=== PATIENT | female | born 1950 | race Caucasian/White ===

== ENCOUNTER 2016-10-11 07:44 | Outpatient (CLI) | payer OTHER ==
--- NOTE | 2016-10-11 12:30 | DIAGNOSTIC IMAGING REPORT ---
PROCEDURE: MG BILATERAL SCREENING W/CAD INDICATION: Screening. Family history breast carcinoma (aunts). TECHNIQUE: Bilateral CC and MLO digital views. COMPARISON: Compared to 10/11/2015, 10/08/2014, and 02/02/2014. FINDINGS: Computer-aided detection applied. Mildly dense with a few dystrophic calcifications. No change. IMPRESSION: 1. Negative mammogram. RESULT CODE: 1- Negative. A. A negative report should not delay biopsy if a dominant or clinically suspicious mass is present. 10-15% of cancers are not identified by x-ray. B. A negative report may reinforce clinical impression. C. Adenosis and dense breasts may obscure an underlying neoplasm. D. False positive reports average 6-10%. E.. A yearly screening mammogram is recommended. A reminder letter will be scheduled.
== END 2016-10-11 23:00 ==
LOC: MAM SRH 07:44
DX: Z12.31 Encounter for screening mammogram for malignant neoplasm of breast (principal); Z80.3 Family history of malignant neoplasm of breast

== ENCOUNTER 2017-03-15 10:58 | Outpatient (CLI) | payer OTHER ==
--- NOTE | 2017-03-15 11:52 | DIAGNOSTIC IMAGING REPORT ---
PROCEDURE: DEXA BONE DENSITY STUDY CLINICAL INDICATION: Postmenopausal, family history of hip fracture, personal history of steroid usage, asthma emphysema, and cancer. COMPARISON: 11/16/2011 FINDINGS: LUMBAR SPINE: Bone mineral density 0.988 g/cm2, T score -0.5, normal, change from previous -3.1 percent, significant . LEFT HIP: Bone mineral density 0.830 g/cm2, T score -0.9, normal, change from previous -2.7 percent . LEFT FEMORAL NECK: Bone mineral density 0.593 g/cm2, T score -2.3, osteopenia , change from previous -3.2 percent FRACTURE RISK CALCULATION ( when applicable): 10-year fracture risk of a major osteoporotic fracture 31% and of a hip fracture 5.7% (T score greater or equal to -1.0 to: NORMAL) (T score from -1.1 to -2.4: OSTEOPENIA) (T score ess than or equal to -2.5: OSTEOPOROSIS) IMPRESSION: 1. Osteopenia elevates the patient's risk of fracture as described. (Risk factor calculation incorporated history of parental fracture and glucocorticoid usage.)
== END 2017-03-15 23:00 | disposition home or self-care (01) ==
LOC: XR SRH 10:58
DX: M85.88 Other specified disorders of bone density and structure, other site (principal); Z78.0 Asymptomatic menopausal state